=== PATIENT | male | born 1970 | race Caucasian/White ===

== ENCOUNTER 2017-07-12 04:18 | Emergency (ER) | payer OTHER ==
[~2017-07-12] VITALS: Ht 172.7 cm; Wt 77.1 kg
[~2017-07-12 04:18] MED LIST: BACTRIM DS TAB1 EACH PO; LORTAB 5 MG/5001 TAB PO; NOHOMEMEDICATIONS
[2017-07-12] MEDS ORDERED: DOXYCYCLINE 10100 MG PO (05:20)
[2017-07-12] MEDS ORDERED: ULTRAM 50MG TAB50 MG PO (05:20)
[2017-07-12 06:08] LABS: URINE BILIRUBIN NEGATIVE (Negative); URINE BLOOD NEGATIVE (Negative); URINE CLARITY CLEAR; URINE COLOR YELLOW; URINE GLUCOSE-RANDOM* NEGATIVE (Negative); URINE KETONES NEGATIVE (Negative); URINE LEUKOCYTES 1+ (Negative); URINE NITRITE NEGATIVE (Negative); URINE PROTEIN (DIPSTICK) NEGATIVE (Negative); URINE SPECIFIC GRAVITY 1.015 (1.005-1.035); URINE UROBILINOGEN 0.2 E.U./dl (0.2-1.0)
[2017-07-12 06:19] LABS: CASTS None Seen /LPF (None Seen); SQUAMOUS 0-3 Few /LPF (0-3)
[2017-07-12 06:20] LABS: BACTERIA >30 Many /HPF (None Seen); CRYSTALS None Seen /LPF (None Seen); URINE RBC None Seen /HPF (0-2); WBC CLUMPS Few (None Seen)
== END 2017-07-12 06:42 | disposition home or self-care (01) ==
LOC: ER 04:18
PROVIDERS: Emergency Medicine
DX: N45.1 Epididymitis (principal); Z88.0 Allergy status to penicillin